=== PATIENT | male | born 1985 | race Caucasian/White ===

== ENCOUNTER 2025-04-15 17:56 | Emergency (ER) | payer BC ==
[~2025-04-15] VITALS: Ht 175.3 cm; Wt 101.5 kg
[2025-04-15 17:58] VITALS: TEMP 98
[2025-04-15 18:47] LABS: BASO # 0.1 10^3/uL (0.0-0.2); BASO % 0.7 % (0.0-1.0); EOS # 0.3 10^3/uL (0.0-0.5); EOS % 3.7 % (0.0-3.0); LYMPH # 2.2 10^3/uL (1.5-5.0); LYMPH % 25.7 % (24.0-44.0); MONO # 0.7 10^3/uL (0.0-0.8); MONO % 8.5 % (2.0-8.0); NEUTROPHILS # 5.2 10^3/uL (1.5-8.5); NEUTROPHILS % 60.9 % (36.0-66.0); PLATELET COUNT, AUTOMATED 286 10^3/uL (150-450)
[2025-04-15 19:09] LABS: ALT/SGPT 81 U/L (7.0-40); AST/SGOT 35 U/L (<34); CALCIUM LEVEL 9.2 MG/DL (8.5-10.1); CARBON DIOXIDE LEVEL 22 MMOL/L (20-31); CHLORIDE LEVEL 109 MMOL/L (98-107); CREATININE FOR GFR 0.82 MG/DL (0.70-1.30); GLOMERULAR FILTRATION RATE > 90.0 (>60); POTASSIUM SERUM 4.7 MMOL/L (3.5-5.1); SODIUM LEVEL 143 MMOL/L (136-145)
[2025-04-15 20:26] LABS: FREE T4 0.81 NG/DL (0.89-1.76)
[2025-04-15] MEDS: NS (Normal Saline) 0.9% 1,000 ML IV ONE (21:48)
[2025-04-15 23:52] VITALS: BP 142/91; O2SAT 96
== END 2025-04-15 23:55 | disposition home or self-care (01) ==
LOC: EDBD 17:56 → M ED 17:56
DX: R55 Syncope and collapse (principal); R94.6 Abnormal results of thyroid function studies; J45.909 Unspecified asthma, uncomplicated; E03.9 Hypothyroidism, unspecified; F10.10 Alcohol abuse, uncomplicated; M51.360 Other intervertebral disc degeneration, lumbar region with discogenic back pain only